=== PATIENT | male | born 1970 | race Caucasian/White ===

== ENCOUNTER → 2017-11-15 08:45 | Outpatient (CLI) | payer OTHER, SELFPAY ==
--- NOTE | 2017-11-15 08:50 | RAD_ITS ---
STUDY: X-RAY - ABDOMEN/PELVIS REASON FOR EXAM: Male, 47 years old. Right-sided flank pain. TECHNIQUE: Two AP supine views of the abdomen and pelvis. COMPARISON: Comparison is made with prior study dated December 09, 2015. FINDINGS: Normal visualized lung bases. There is a moderate amount of colonic fecal material. There is a 9.1 mm calculus in the lower pole of the left kidney. There is also evidence of a 4.4 mm calculus in the midpole of the left kidney. Normal soft tissue structures. Normal visualized osseous structures. RAD/Abdomen Single View IMPRESSION: Left intrarenal calculi. Electronically Signed: Jesus Suazo MD at 13:01 EDT Tel [phone], Service support ,
== END ==
PROVIDERS: Family Provider Family Medicine; PCP Family Medicine; Visit Provider Urology
DX: R10.9 Unspecified abdominal pain (principal)
CPT/HCPCS: 74018

== ENCOUNTER → 2017-11-22 14:50 | Outpatient (CLI) | payer OTHER, SELFPAY ==
--- NOTE | 2017-11-22 14:59 | CT_ITS ---
STUDY: CT ABDOMEN AND PELVIS WITH CONTRAST REASON FOR EXAM: Male, 47 years old. Abdominal pain. Right groin and flank pain. History of kidney stones. RADIATION DOSAGE (If Supplied By Facility): CTDIvol = ( 11.87 ) mGy, DLP = ( 518.49 ) mGycm TECHNIQUE: Transaxial images were obtained from the dome of the diaphragm to the symphysis pubis with oral contrast. 100 ml of Isovue 300 contrast was administered. Sagittal and coronal images were reconstructed. Individualized dose optimization techniques were used for this CT. COMPARISON: 11/28/2015. FINDINGS: The visualized lung bases are unremarkable. The visualized portions of the heart are within normal limits. Normal liver. Normal gallbladder and extrahepatic biliary system. Normal spleen. Normal pancreas. Normal bilateral adrenal glands. Normal right kidney. There are nonobstructive left lower pole renal calculi measuring 7 mm and 9 mm. There is no demonstrated ureteral calculus or hydronephrosis. Normal visualized stomach. Normal small intestine. Normal colon. The appendix is visualized on axial images 61-66 and it appears normal.. Normal abdominal aorta. Normal inferior vena cava. Normal retroperitoneum. Normal urinary bladder. There is a small left inguinal hernia sac, but no bowel. There are mild degenerative changes of the visualized lumbar spine. CT/Abdomen/Pelvis WITH Contrast IMPRESSION: 7 mm a 9 mm nonobstructive left renal calculi. No demonstrated ureteral calculi or hydronephrosis. No evidence for acute pathology. No evidence for appendicitis or diverticulitis. Electronically Signed: Marcelo Yanez MD at 1:19 EDT , Service support ,
== END ==
PROVIDERS: Family Provider Family Medicine; PCP Family Medicine; Visit Provider Urology
DX: N20.0 Calculus of kidney (principal); R10.9 Unspecified abdominal pain
CPT/HCPCS: 74177; Q9967

== ENCOUNTER → 2021-06-01 16:07 | Outpatient (CLI) | payer OTHER, SELFPAY ==
--- NOTE | 2021-06-01 16:24 | MRI_ITS ---
EXAM: MR LEFT LOWER EXTREMITY WITHOUT INTRAVENOUS CONTRAST, ANKLE CLINICAL INDICATION: NAVICULAR STRESS FX, POSTIER TIBIALIS TENDONITIS VS TEAR TECHNIQUE: Multiplanar and multisequence MR images of the left ankle without intravenous contrast. This report was created using [employer] report [employer] technology. COMPARISON: None. FINDINGS: LIGAMENTS: ANTERIOR TALOFIBULAR: Unremarkable. Intact. POSTERIOR TALOFIBULAR: Unremarkable. Intact. ANTERIOR TIBIOFIBULAR: Unremarkable. Intact. POSTERIOR TIBIOFIBULAR: Unremarkable. Intact. CALCANEOFIBULAR: Unremarkable. Intact. DELTOID: Unremarkable. Intact. SPRING: Unremarkable. Intact. LISFRANC: Unremarkable. Intact. TENDONS: ACHILLES: Unremarkable. Intact. FLEXOR: Unremarkable. Intact. EXTENSOR: Unremarkable. Intact. PERONEAL: Unremarkable. Intact. TIBIALIS ANTERIOR: Unremarkable. Intact. TIBIALIS POSTERIOR: There is posterior tibialis tendinosis and tenosynovitis, but without a demonstrated tendon tear. There is fluid around the posterior tibial tendon musculotendinous junction. MUSCLES: Unremarkable. Normal bulk and signal. FLUID: Unremarkable. No joint effusion. SINUS TARSI: Unremarkable. Normal fat in the sinus tarsi. TARSAL TUNNEL: Unremarkable. PLANTAR FASCIA: Unremarkable. Intact. CARTILAGE: Unremarkable. No osteochondral lesion. Articular cartilage intact. BONES/JOINTS: See above. OTHER SOFT TISSUES: Unremarkable. 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 Electronically Signed: Pedro Hodegs MD at 18:15 EST , Service support ,
== END ==
PROVIDERS: PCP Family Medicine; Visit Provider Podiatrist
DX: M84.375A Stress fracture, left foot, initial encounter for fracture (principal); M76.822 Posterior tibial tendinitis, left leg; M79.672 Pain in left foot
CPT/HCPCS: 73721